=== PATIENT | male | born 1990 | race Caucasian/White ===

== ENCOUNTER 2022-06-10 17:59 | Emergency (ER) | payer OTHER, SELFPAY ==
[2022-06-10 18:09] VITALS: BP 149/83; PULSE 78; RESP 16; TEMP 36.9; O2SAT 100
--- NOTE | 2022-06-10 18:13 | ED.GENADULT ---
HPI - General Adult General Chief complaint: Dental/Oral Stated complaint: Mouth Pain Lt Side Time Seen by Provider: 06/10/22 18:14 Source: patient Mode of arrival: ambulatory Limitations: no limitations History of Present Illness HPI narrative: Male patient presents to [facility] with complaints of abscess to the left her gum that with symptoms that started yesterday. Patient states he does have a history of her canal back there in the past. Patient denies any fevers, body aches chills. Related Data Allergies Allergy/AdvReac Type Severity Reaction Status Date / Time No Known Allergies Allergy Verified 06/10/22 18:03 Review of Systems Review of Systems: CONSTITUTIONAL: Denies fever, chills, or sweats. EYES: Denies visual changes, redness, or discharge. ENT: Denies rhinorrhea, congestion, sore throat, or otalgia. Positive left upper oral or dental pain CARDIOVASCULAR: Denies chest pain, palpitations, or edema. RESPIRATORY: Denies cough or dyspnea. GASTROINTESTINAL: Denies abdominal pain, nausea, vomiting, or diarrhea. GENITOURINARY: Denies dysuria or hematuria. SKIN: Denies rash or itching. MUSCULOSKELETAL: Denies back pain, joint pain, or myalgia. NEUROLOGIC: Denies headache, numbness, or weakness. PSYCHIATRIC: Denies anxiety or depression. PMFSH Comments At the time of my signature I agree with nursing past medical history, surgical, social, and family history. There is no relevant family history pertinent to the presenting complaint. Exam Narrative: GENERAL: Well-appearing, well-nourished, and in no acute distress. HEAD: Normocephalic, atraumatic. EYES: PERRLA and EOMI. ENT: Nares clear, no rhinorrhea or epistaxis. Mucous membranes moist. patient does have an obvious abscess to the gum to the left upper gum above the left canine NECK: Supple. No lymphadenopathy CHEST: Clear to auscultation. No respiratory distress. HEART: Regular rate and rhythm. No murmur heard. Normal peripheral pulses. ABDOMEN: Soft, nontender, nondistended, normal active bowel sounds. EXTREMITIES: Normal range of motion. No edema. SKIN: Warm, dry, no rash. NEURO: No focal deficits. Alert and oriented x3. Course Course Level of Care: Express Care Visit Vital Signs Vital signs: Vital Signs Temperature 36.9 C 06/10/22 18:09 Pulse Rate 78 06/10/22 18:09 Respiratory Rate 16 06/10/22 18:09 Blood Pressure 149/83 H 06/10/22 18:09 Pulse Oximetry 100 06/10/22 18:09 Oxygen Delivery Room Air 06/10/22 18:09 Temperature 36.9 C 06/10/22 18:09 Pulse Rate 78 06/10/22 18:09 Respiratory Rate 16 06/10/22 18:09 Blood Pressure 149/83 H 06/10/22 18:09 Pulse Oximetry 100 06/10/22 18:09 Oxygen Delivery Room Air 06/10/22 18:09 Vital signs reviewed. The patient has been informed that they may have pre-hypertension or Hypertension based on a BP reading in the department. I recommend that the patient call the primary care provider listed on their discharge instructions or a physician of their choice this week to arrange follow up for further evaluation of possible pre-hypertension or Hypertension Procedures Abscess I/D oral: Date of Incision: 06/10/22 Time of Incision: 18:18 Side (if applicable): left Sedation/analgesia: none Technique: needle aspiration Irrigation: Yes Packing used?: none I&D Results: Pus Medical Decision Making MDM Narrative Medical decision making narrative: Opened up abscess and did drain some pus from the area. Discussed with patient to clean area by gargling some hydrogen peroxide and spitting it out. prescribe patient a couple of days worth of tramadol to help with the pain and an antibiotic and he should follow up with his primary dentist as needed. Differential Diagnosis Differential Diagnosis: Differential diagnosis: Dental caries, periodontal disease, avulsed tooth, tooth infections, mandibular infection, Ashwin's
== END 2022-06-10 18:25 | disposition home or self-care (01) ==
PROVIDERS: Emergency Provider Nurse Practitioner Family
DX: K04.7 Periapical abscess without sinus (principal)
CPT/HCPCS: 41800; 99213; G0463